=== PATIENT | female | born 1960 | race Caucasian/White ===

== ENCOUNTER 2021-05-09 06:43 | Emergency (ER) | payer OTHER, SELFPAY ==
--- NOTE | ~2021-05-09 | XR_ITS ---
EXAMINATION: XR chest 1V portable INDICATION: Cough and nasal congestion TECHNIQUE: Portable AP chest at 0756 hours COMPARISON: 08/26/2015 FINDINGS: The lungs are free of acute opacities. There is no pleural effusion or pneumothorax. The ca rdiomediastinal silhouette is normal. The visualized bones and soft tissues are unremarkable. IMPRESSION: 1. No acute cardiopulmonary abnormality. Reviewed, dictated and finalized at location A. OLL AND BENEFITS ASSISTANT
--- NOTE | ~2021-05-09 | CT_ITS ---
EXAMINATION: CT brain wo con INDICATION: Headache and nasal congestion COMPARISON: None TECHNIQUE: Standard unenhanced head CT. The dose-length product (DLP) was 605.33 mGy-cm. The mA was a djusted according to patient size. Iterative reconstruction technique was employed. FINDINGS: There is no intracranial hemorrhage, acute infarction, or abnormal mass lesion. The ventric les are normal. There is no abnormal mass effect or midline shift. The lee-white matter differentiat ion is normal. The basal cisterns are patent. The orbits are normal. There is partial opacification o f the visualized right maxillary sinus. There is complete opacification of the right ethmoidal air ce lls. There is partial opacification of the left ethmoidal air cells and right sphenoid sinus. The lef t sphenoid sinus and frontal sinuses are clear. IMPRESSION: 1. Sinus disease as detailed above. 2. No acute intracranial abnormality. Reviewed, dictated and finalized at location A. BODS DEVELOPER
[2021-05-09 06:49] VITALS: BP 139/78; PULSE 92; RESP 18; TEMP 36.4; O2SAT 99
--- NOTE | 2021-05-09 08:18 | ED.GENADULT ---
HPI - General Adult General Chief complaint: Upper Respiratory Infection Stated complaint: headache, congestion Time Seen by Provider: 05/09/21 07:46 Source: patient Mode of arrival: ambulatory Limitations: no limitations History of Present Illness HPI narrative: Patient complaining of nasal congestion and chest congestion started 2 to 3 days ago, yesterday started having severe excruciating headache at the right side of the head. Patient denies any fever, chills, nausea, vomiting, coughing, sore throat. Patient is not vaccinated for COVID-19, patient works in public. Patient does not take medicine at home, does not smoke or drink or uses drugs. Related Data Allergies Allergy/AdvReac Type Severity Reaction Status Date / Time PROCHLORPERAZINE EDISYLATE Allergy Mild Other Uncoded 05/09/21 06:54 PROCHLORPERAZINE MALEATE Allergy Mild Other Uncoded 05/09/21 06:54 Review of Systems Review of Systems: CONSTITUTIONAL: Denies fever, chills, or sweats. EYES: Denies visual changes, redness, or discharge. ENT: Denies rhinorrhea, congestion, sore throat, or otalgia. CARDIOVASCULAR: Denies chest pain, palpitations, or edema. RESPIRATORY: Denies cough or dyspnea. GASTROINTESTINAL: Denies abdominal pain, nausea, vomiting, or diarrhea. GENITOURINARY: Denies dysuria or hematuria. SKIN: Denies rash or itching. MUSCULOSKELETAL: Denies back pain, joint pain, or myalgia. NEUROLOGIC: Denies headache, numbness, or weakness. PSYCHIATRIC: Denies anxiety or depression. Exam Narrative: General appearance: Well-developed, well-nourished Skin: Normal color Head: Normocephalic, nontraumatic Eyes: Clear conjunctiva ENT: Oropharynx normal, ears normal, nose normal Neck: Supple, nontender Chest and respiratory: Airway patent, no respiratory distress, no accessory muscle use Heart: Regular rate/rhythm Abdomen: Soft, nontender, no organomegaly, quiet bowel sounds Vascular: Normal peripheral pulses, normal capillary refill. Musculoskeletal: Normal range of motion, nontender back Neurologic: Alert and oriented ?3, WEIGHT SHIFTER is normal as tested, no gross motor deficit Course Course Emergency Course: Stable Vital Signs Vital signs: Vital Signs Temperature 36.4 C 05/09/21 06:49 Pulse Rate 92 05/09/21 06:49 Respiratory Rate 18 05/09/21 06:49 Blood Pressure 139/78 05/09/21 06:49 Pulse Oximetry 99 05/09/21 06:49 Temperature 36.4 C 05/09/21 06:49 Pulse Rate 92 05/09/21 06:49 Respiratory Rate 18 05/09/21 06:49 Blood Pressure 139/78 05/09/21 06:49 Pulse Oximetry 99 05/09/21 06:49 Medical Decision Making MDM Narrative Medical decision making narrative: Viral infection is my concern Differential Diagnosis Differential Diagnosis: Viral infection including Covid is my concern Vital Signs Vital Signs: Vital Signs Temperature 36.4 C 05/09/21 06:49 Pulse Rate 92 05/09/21 06:49 Respiratory Rate 18 05/09/21 06:49 Blood Pressure 139/78 05/09/21 06:49 Pulse Oximetry 99 05/09/21 06:49 Temperature 36.4 C 05/09/21 06:49 Pulse Rate 92 05/09/21 06:49 Respiratory Rate 18 05/09/21 06:49 Blood Pressure 139/78 05/09/21 06:49 Pulse Oximetry 99 05/09/21 06:49 Lab Data Labs: Lab Results 05/09/21 Range/Units 08:44 SARS-CoV-2 RNA (RT-PCR) Pending Imaging Data Radiologist's impression: Impressions Chest X-Ray 05/09/21 08:08 IMPRESSION: 1. No acute cardiopulmonary abnormality. Head CT 05/09/21 10:05 IMPRESSION: 1. Sinus disease as detailed above. 2. No acute intracranial abnormality. Critical Care Time Critical Care Time Critical Care Time: No Discharge Plan Discharge
[2021-05-09] MEDS: IBUPROFEN 400 MG TABLET 800 MG PO (08:40)
[2021-05-09] MEDS: ACETAMINOPHEN 500 MG TABLET 1000 MG PO (08:41)
[2021-05-09 12:04] VITALS: BP 128/72; PULSE 84; RESP 16; O2SAT 99
[2021-05-09 20:10] LABS: SARS-CoV-2 RNA PCR Negative
== END 2021-05-09 12:08 | disposition home or self-care (01) ==
PROVIDERS: Emergency Provider Emergency Medicine; PCP Family Medicine Adolescent Medicine
DX: Z20.822 Contact with and (suspected) exposure to COVID-19 (principal); J06.9 Acute upper respiratory infection, unspecified
CPT/HCPCS: 70450; 71045; 99284; A9270; C9803; U0003; U0005

== ENCOUNTER 2021-11-30 19:43 | Emergency (ER) | payer OTHER, SELFPAY ==
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
[2021-11-30 19:44] VITALS: BP 140/85; PULSE 93; RESP 16; TEMP 37.1; O2SAT 100
--- NOTE | 2021-11-30 20:09 | PC.NURSE ---
linn tsoner cleaned lacerations with ns and gauze with temi Gary at bedside
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
--- NOTE | 2021-11-30 20:17 | PC.NURSE ---
Pt to CT at this time.
[2021-11-30 20:49] VITALS: PULSE 87; RESP 15; O2SAT 100
[2021-11-30] MEDS: TETANUS,DIPHTHERIA,AC PERTUSSIS ADULT (0.5 ML) BOOSTRIX IM (20:50)
--- NOTE | 2021-11-30 21:12 | PC.NURSE ---
c-collar removed per temi perez instructions.
[2021-11-30] MEDS: LIDO 1%/EPINEPHRINE 1:100,000 20 ML VIAL INFILTRATE (21:36)
[2021-12-01] VITALS: BP 125/74; PULSE 79; RESP 18; O2SAT 98
== END 2021-11-30 23:55 | disposition home or self-care (01) ==
PROVIDERS: Emergency Provider Emergency Medicine; PCP Family Medicine Adolescent Medicine
DX: S01.01XA Laceration without foreign body of scalp, initial encounter (principal); S51.022A Laceration with foreign body of left elbow, initial encounter; Z23 Encounter for immunization; V49.88XA Car occupant (driver) (passenger) injured in other specified transport accidents, initial encounter
CPT/HCPCS: 12002; 70450; 72125; 73080; 90471; 90715; 99284

== ENCOUNTER 2022-01-21 12:33 | Outpatient (RCR) | payer OTHER, SELFPAY ==
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
== END 2022-04-06 11:49 | disposition home or self-care (01) ==
LOC: ANHST 12:33
PROVIDERS: PCP Family Medicine Adolescent Medicine; Referring Provider Family Medicine Adolescent Medicine; Visit Provider Family Medicine Adolescent Medicine
DX: S06.0X0D Concussion without loss of consciousness, subsequent encounter (principal)
CPT/HCPCS: 92523

== ENCOUNTER 2022-04-15 06:57 | Outpatient (CLI) | payer OTHER, SELFPAY ==
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
== END 2022-04-15 06:58 ==
PROVIDERS: PCP Family Medicine Adolescent Medicine; Visit Provider Family Medicine Adolescent Medicine
DX: H81.4 Vertigo of central origin (principal); S06.0X0D Concussion without loss of consciousness, subsequent encounter
CPT/HCPCS: 70551

== ENCOUNTER 2023-09-16 03:00 | Emergency (ER) | payer BC, SELFPAY ==
--- NOTE | ~2023-09-16 | CT_ITS ---
CT of the Abdomen and Pelvis: Indication: Abdominal pain Technique: 2.5 mm axial scans were obtained through the abdomen and pelvis following intravenous adm inistration of 100 cc of Omnipaque 350. Dose reduction technique was used on this scan by utilizing a utomated exposure control and iterative reconstruction technique. The dose-length product (DLP) was 3 68.33 mGy-cm. Findings: Scans through the lung bases are unremarkable. Lesion in the peripheral right upper lobe demonstrates apparent discontinuous peripheral enhancement, most compatible with hemangioma. The spleen, pancreas, gallbladder, adrenals and kidneys are within normal limits. There are atherosclerotic calcifications of the aorta. No lymphadenopathy. There are minimal inflammatory changes about the diverticulum at the distal sigmoid colon, most burak tible mild acute diverticulitis. No abscess or free air. No bowel obstruction. Images through the pelvis were performed. Urinary bladder unremarkable. No pelvic mass seen. No ascit es. Impression: Mild acute diverticulitis of the distal sigmoid colon. Hepatic hemangioma, as above. Reviewed, dictated and finalized at [facility]. Impression: Mild acute diverticulitis of the distal sigmoid colon. Hepatic hemangioma, as above.
[2023-09-16 03:10] VITALS: BP 129/66; PULSE 73; RESP 12; TEMP 36.3; O2SAT 100
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
[2023-09-16] MEDS: MORPHINE SULFATE (*CRX) 4 MG/ML INJ 2 MG IV PUSH (05:19)
[2023-09-16] MEDS: ONDANSETRON INJ 4 MG/2 ML VIAL IV PUSH (05:19)
[2023-09-16] MEDS: SODIUM CHLORIDE 0.9% IV 1,000 ML 999 ML IV CONT (05:19)
[2023-09-16 05:43] LABS: Basophils Percent Auto 0.3 % (0.2-1.2); Eosinophils Percent Auto 0.1 % (0-4.4); Hematocrit 39.7 % (37.0-47.0); Hemoglobin 13.3 g/dL (12.0-15.0); Immature Granulocyte Absolute 0.04 K/mm3 (0.00-0.031); Immature Granulocyte Percent A 0.4 % (0-0.5); Lymphocytes Absolute Auto 0.87 K/mm3 (0.9-3.2); Lymphocytes Percent Auto 7.7 % (18.3-44.2); Mean Corpuscular HGB Conc 33.5 g/dl (32-36); Mean Corpuscular Volume 86.7 fl (80-100); Mean Platelet Volume 10.1 fl (7.4-10.4); Monocytes Absolute Auto 0.4 K/mm3 (0.1-0.6); Monocytes Percent Auto 3.1 % (2.6-8.5); Neutrophils Absolute Auto 10.1 K/mm3 (1.3-6.7); Neutrophils Percent Auto 88.4 % (45.5-73.1); Platelet Count Result 199 k/mm3 (150-375); Red Blood Count 4.58 M/mm3 (4.2-5.4); Red Cell Distribution Width 12.8 % (11.5-14.5); White Blood Count 11.4 K/mm3 (4.5-10.0)
[2023-09-16 06:10] LABS: Alanine Aminotransferase 20 U/L (6-35); Albumin Level 4.7 g/dL (3.5-5.1); Alkaline Phosphatase 88 U/L (38-126); Anion Gap 7 mmol/L (4-12); Aspartate Amino Transferase 27 U/L (14-36); Bilirubin,Total 0.6 mg/dL (0.2-1.3); Blood Urea Nitrogen 20 mg/dL (7-17); Calcium 10.2 mg/dL (8.4-10.2); Carbon Dioxide 26 mmol/L (22-30); Chloride 104 mmol/L (98-107); Estimated CRCL calculation 74 ml/min; Estimated Glomerular Filt Rate > 60; Glucose 169 mg/dL (65-110); Lipase 104 U/L (23-300); Potassium 3.6 mmol/L (3.4-5.0); Sodium 137 mmol/L (137-145)
== END 2023-09-16 07:07 | disposition home or self-care (01) ==
PROVIDERS: Emergency Provider Emergency Medicine; PCP Family Medicine Adolescent Medicine
DX: K57.32 Diverticulitis of large intestine without perforation or abscess without bleeding (principal); D18.09 Hemangioma of other sites
CPT/HCPCS: 36415; 74177; 80053; 83690; 85025; 96361; 96374; 96375; 99284; J2270; J2405; J7030; Q9967